=== PATIENT | male | born 1935 | race Caucasian/White ===

== ENCOUNTER 2017-03-19 23:29 | Inpatient (IN) | payer MEDICARE, OTHER ==
[~2017-03-19] VITALS: Ht 175.3 cm; Wt 86.8 kg
[~2017-03-19 23:29] MED LIST: ALBU8.5H2 INH; ASPI-973 PO; ATOR80TA77 PO; AZEL23SP NASAL; BISO5TAB2 PO; CARV12.52 PO; CHOL200025 PO; CLOP75TA28 PO; DOXY100V IV; GUAI120013 PO; LOSA50TA37 PO; METF1000 PO; MOME13HF INH; MULT-896 PO; NITR0.4T PO; SITA100T12 PO; TIOT18CA3 INH
[2017-03-19 23:39] VITALS: BP 154/77; PULSE 97; RESP 16; O2SAT 97
--- NOTE | 2017-03-19 23:59 | ED.REPORT ---
HPI-Chest Pain 40 and Over Date of Service Mar 19, 2017 ED Provider: Al Ribera MD A 81 year old male with a history of PR, CHF, CAD, CABG, hypertension, diabetes and COPD presents to the ED due to chest pain and elevated heart rate. The pt began experiencing right arm aching and left-sided chest aching at 19:15 while sitting down. He took his blood pressure and heart rate at that time, which were 150/80 and 102 respectively. His blood sugar was above 200. These levels remained fairly constant for several hours. The pt took two sublingual nitroglycerin between 19:00 and 20:00, and when the pt woke up at 21:45 after a brief nap his arm and chest aches had improved. His heart rate remained in the nineties, which is abnormally high for him. The pt denies shortness of breath, headache, vision changes, fever, chills, constipation or lower extremity edema. The pt is not experiencing chest pain in the ED and believes that his symptoms may be related to relatively high levels of sugar intake at 18:00. The pt has a history of similar symptoms during cardiac events. Nursing Notes Stated Complaint: RT ARM PAIN,SOME CHEST PRESSURE Chief Complaint: Chest Pain Nursing Notes Reviewed: Yes Allergies: Coded Allergies: Potassium Clavulanate (Verified Allergy, Severe, 03/19/17) amoxicillin trihydrate (Verified Allergy, Severe, 03/19/17) Scheduled Aspirin (Aspirin) 81 Mg Tablet 81 MG PO DAILY Atorvastatin Calcium (Atorvastatin Calcium) 80 Mg Tablet 80 MG PO DAILY Azelastine/Fluticasone (Dymista Nasal [place]) 23 Gm [place].pump 2 SPR NASAL DAILY Bisoprolol Fumarate (Bisoprolol Fumarate) 5 Mg Tablet 5 MG PO DAILY Carvedilol (Carvedilol) 12.5 Mg Tablet 12.5 MG PO BID Cholecalciferol (Vitamin D3) (Vitamin D3) 2,000 Unit Tablet 2,000 UNIT PO DAILY Clopidogrel (Clopidogrel) 75 Mg Tablet 75 MG PO DAILY Doxycycline Hyclate (Doxy 100) 100 Mg Vial 100 MG IV BID Losartan Potassium (Losartan Potassium) 50 Mg Tablet 50 MG PO DAILY Metformin (Glucophage) 1,000 Mg Tablet 1,000 MG PO BID Mometasone/Formoterol (Dulera 200 Mcg/5 Mcg Inhaler) 13 Gm Hfa.aer.ad 1 PUFF INH BID Multivitamin W-Minerals/Lutein (Centrum Silver Ultra Men's Tab) 1 Each Tablet 1 EACH PO DAILY Sitagliptin Phos (Januvia) 100 Mg Tablet 100 MG PO DAILY Tiotropium [place] (Spiriva) 18 Mcg Cap.w.dev 18 MCG INH DAILY Scheduled PRN Albuterol HFA (Proair HFA) 8.5 Gm Hfa.aer.ad 2 PUFFS INH q4 hours PRN PRN For Shortness of Breath Guaifenesin (Mucinex) 1,200 Mg Tbmp.12hr 1,200 MG PO BID PRN PRN For Cough Nitroglycerin SL (Nitrostat) 0.4 Mg Tab.subl 0.4 MG PO Q5MIN PRN PRN For Chest Pain General Time Seen by MD: 23:56 Chief Complaint Chest pain Hx Obtained From: Patient Arrived By: Walk-in Sudden in Onset?: No Onset Occurred: 1 - 4 hours ago Recent Healthcare: No recent hospitalization, Recent doctor visit Similar Sx Previous: No Past Medical History Past Medical History Notes: Medications: ASA 81 mg atorvastatin 80 mg bisoprolol fumarate 5 mg centrum cozaar 50 mg dulera 200 mcg inhaler dymista 137 mcg nasal spray januvia tabs 100 mg metformin 1,000 mg plavix 75 mg nitrostat 0.4 mg Past Medical History PR pacemaker arthritis SVT Reports: COPD, Congestive heart failure, Coronary artery disease, Diabetes mellitus, Hypertension Past Surgical History vasectomy heel surgery pacemaker placement Reports: CABG Smoking History Former Smoker Social History Former smoker, used for 26 years, quit in 1976. Alcohol Use: "Social" Drug Use: Denies drug use Ambulatory Status Independent Review of Systems Review of Systems Note: right arm ache high heart rate high blood sugar denies lower extremity edema Constitutional: Denies: Chills, Fever Respiratory: Denies: Non-productive cough, Shortness of breath Cardiovascular: Reports: Chest pain GI: Denies: Abdominal pain, Constipation Musculoskeletal: Denies: Back pain, Neck pain Skin: Denies Rash Neurologic: Denies: Headache Complete sys rev & neg: except as marked. Physical Exam Constitutional: Well-developed, well-nourished. Not diaphoretic. Head: Normocephalic and atraumatic. Mouth/Throat: Oropharynx is clear and moist. No oropharyngeal exudate. Eyes: EOM are normal. Pupils are equal, round, and reactive to light. Neck: Supple, no tracheal deviation. Cardiovascular: Normal rate, regular rhythm. Equal and intact distal pulses throughout. 2/6 systolic murmur. Pulmonary/Chest: Effort normal and breath sounds normal. No respiratory distress. Abdominal: Soft. No distension. There is no tenderness, rebound, or guarding. Bowel sounds present. Musculoskeletal: Range of motion grossly intact, moving all extremities. No edema or tenderness appreciated. Neurological: AOx3. Grossly nonfocal exam. Strength and sensation intact and equal to bilateral upper and lower extremities. Skin: Warm and dry, no rashes or pallor appreciated. Psychiatric: Appropriate mood and affect. Behavior appears normal. Initial Vital Signs Vital Signs (First) Date Time Temp Pulse Resp B/P Pulse Ox O2 Delivery O2 Flow Rate FiO2 03/19/17 23:39 36.5 97 16 154/77 97 Room Air Initial VS: Reviewed Interpretation & Diagnostics Lab Results Interpretation Result Diagram: 03/19/17 2355 03/19/17 2355 Test 03/19/17 23:55 03/20/17 01:45 White Blood Count 11.5th/mm3 (3.8-10.1) Red Blood Count 3.83mil/mm3 (4.40-5.80) Hemoglobin 12.2g/dL (13.8-17.2) Hematocrit 36.0% (41.0-50.0) Mean Corpuscular Volume 94.0fL (81-100) Mean Corpuscular Hemoglobin 31.9pg (27.0-35.0) Mean Corpuscular Hemoglobin Concent 33.9% (32.0-37.0) Red Cell Distribution Width 13.2% (12.3-15.4) Platelet Count 154bil/L (150-400) Neutrophils (%) (Auto) 76.5% (40-74) Lymphocytes (%) (Auto) 15.0% (14-46) Monocytes (%) (Auto) 7.2% (4-12) Eosinophils (%) (Auto) 1.0% (0-5) Basophils (%) (Auto) 0.1% (0-3) Sodium Level 138mEq/L (134-144) Potassium Level 5.0mEq/L (3.5-5.2) Chloride Level 100mEq/L (97-108) Carbon Dioxide Level 22mmol/L (18-29) Blood Urea Nitrogen 34mg/dL (8-27) Creatinine 1.43mg/dL (0.76-1.27) Estimat Glomerular Filtration Rate 51mL/min (>59) Glucose Level 176mg/dL (60-99) Calcium Level 9.8mg/dL (8.5-10.1) Magnesium Level 1.8mg/dL (1.6-2.6) Total Bilirubin 0.4mg/dL (0.0-1.2) Aspartate Amino Transf (AST/SGOT) 33U/L (0-50) Alanine Aminotransferase (ALT/SGPT) 16U/L (0-44) Alkaline Phosphatase 83U/L (25-160) Troponin T 0.020ug/L (0.0-0.011) Total Protein 7.5g/dL (6.4-8.4) Albumin 4.4g/dL (3.4-5.0) Triglycerides Level 337mg/dL (0-149) Cholesterol Level 157mg/dL (100-199) LDL Cholesterol, Calculated 52.600mg/dL (0-99) VLDL Cholesterol 67.400mg/dL HDL Cholesterol 37mg/dL (>39) Cholesterol/HDL Ratio 4.24 (0.0-4.4) Urine Color Yellow (YELLOW) Urine Appearance Clear (CLEAR,HAZY) Urine pH 5.0 (5.0-8.0) Urine Specific [place] 1.020 (1.003-1.035) Urine Protein Negativemg/dL (NEG,TRACE) Urine Glucose (UA) Negativemg/dL (NEGATIVE) Urine Ketones Negativemg/dL (NEGATIVE) Urine Occult Blood Negative (NEGATIVE) Urine Nitrite Negative (NEGATIVE) Urine Bilirubin Negative (NEGATIVE) Urine Urobilinogen Normalmg/dL (NORMAL) Urine Leukocyte Esterase Negative (NEGATIVE) Urine RBC 0-2/hpf (0-2) Urine WBC 0-5/hpf (0-5) Urine Epithelial Cells Few/hpf (NONE-MOD) Urine Crystals None seen (NONE SEEN) Urine Bacteria Few/hpf (NONE-FEW) Urine Hyaline Casts None/lpf (NONE) Urine Granular Casts None seen (NONE SEEN) Urine Waxy Casts None seen (NONE SEEN) Urine Red Blood Cell Casts None seen (NONE SEEN) Urine White Blood Cell Casts None seen (NONE SEEN) Urine Mucus None seen (None Seen) Urine Trichomonas None seen (NONE SEEN) Urine Yeast None (NONE SEEN) Urinalysis Comment None Urine Culture Reflexed Not indicated Hold Urine Received (Received) ECG Interpretation ECG Interpretation: sinus or ectopic atrial rhythm with a rate of 97 RBBB and LAFB LVH with secondary repolarization abnormality anterior Q waves, possibly due to LVH ST depressions in II, V3 - V6 changed from previous dated 10/26/2015 Time: 23:35 Interpreted by: ED physician X-Ray Chest Interpretation Chest Xray Interpretation: pacer defibrillator in place no signs of acute disease Interpretation / Wet Read by: Wet read ED physician Re-Eval/Medical Decision Med Decision/Clinical Course 81 yo M w/ complex cardiac hx incl prev intervention p/w chest pain typical of previous times in which he had cardiac 'events'. CP free after NTG, however does have an STEPHANIE and slight troponin elevation. New ST depressions in lateral leads noted on today's EKG not present previously. Discussed case w/ Dr. Simon - appreciate recs. Plan admission for further w/u and mgmt, telemetry, serial troponins and EKGs, and cardiology eval. Pt agreeable to plan, no further questions. Source of Hx: Old records Time of Eval: 01:02 Re-Evaluation/Progress Note: Pt informed of his EKG results and the need for admission. The pt understands and agrees with the plan. All questions are addressed at this time. Consultation #1: Referral / Consult Name: Charlie Taylor MD Consulted With: Hospitalist Call Returned at: 01:20 Dye Stand Loader: Agrees with eval, Agrees with plan Note: Spoke with Dr. Taylor, [facility], regarding pt's case. Dr. Taylor requests cardiology consult prior to admission. Consultation #2: Referral / Consult Name: Eliel Simon MD Consulted With: Cardiology Call Returned at: 01:30 Dye Stand Loader: Agrees with evperry, Agrees with plan Note: Spoke with Dr. Simon, cardiology, regarding pt's case. Dr. Simon recommends admission and agrees to consult. Consultation #3: Referral / Consult Name: Charlie Taylor MD Consulted With: Hospitalist Call Returned at: 01:35 Dye Stand Loader: Agrees with eval, Agrees with plan, Accepts admit Note: Spoke with Dr. Taylor, hospitalist, regarding pt's case. Dr. Taylor agrees with the evaluation and agrees to admit the pt. Counseled Regarding: Diagnosis, Lab results, Need for admission Discharge & Departure Primary Impression: STEMI (ST elevation myocardial infarction) Involved coronary artery: unspecified coronary artery Qualified Code: I21.3 - ST elevation (STEMI) myocardial infarction of unspecified site Additional Impression: Chest pain Chest pain type: unspecified Qualified Code: R07.9 - Chest pain, unspecified Disposition: ADMITTED TO HOSPITAL Discharge Condition All VS Reviewed: Yes Condition: Stable Referrals: Tristan Smith MD Attestation Portions of this note were transcribed by Florinda Grover. I, Dr. Ribera personally performed the history, physical exam and medical decision-making; I reviewed and confirmed the accuracy of the information in the transcribed note. Signed by: Javier Charles, 03/20/17 and 0137. copies to: Tristan Smith MD, William B MD Mar 19, 2017 23:59 FLORINDA GROVER Mar 20, 2017 00:27
[2017-03-20] VITALS (10 sets, daily range): BP systolic 105–132; BP diastolic 56–74; PULSE 60–68; RESP 14–20; O2SAT 96–100
[2017-03-20 00:16] LABS: BASOPHILS % (AUTO) 0.1 % (0-3); MONOCYTES % (AUTO) 7.2 % (4-12); Mean Corpuscular Hemoglobin 31.9 pg (27.0-35.0); NEUTROPHILS % (AUTO) 76.5 % (40-74); Platelet Count 154 bil/L (150-400)
[2017-03-20 00:52] LABS: TROPONIN T 0.02 ug/L (0.0-0.011)
[2017-03-20 00:55] LABS: Magnesium 1.8 mg/dL (1.6-2.6)
--- NOTE | 2017-03-20 01:39 | PCM.HPMED ---
Subjective Date of Service Mar 20, 2017 Primary Provider: Admitting Physician: Primary Care Physician: Ifeanyi Henry MD Attending Physician: Admit Status: From the Emergency Department Chief Complaint: Chest pain History of Present Illness: This is a 81-year-old male with past medical history significant for severe COPD , diabetes mellitus, hypertension, hyperlipidemia, bilateral carotid artery stenosis, and coronary artery disease status post CABG who presents with chest pain. The patient states that over the last year he has intermittently had right forearm pain with a left-sided pressure that is relieved by rest. At times he will need a nitroglycerin tablet to relieve the symptoms but he rarely uses these. Beginning on the evening of 03/19/2017 at 6 PM he began having right arm heaviness, left chest pressure, and felt "listless." This occurred at rest. The severity of these symptoms were unchanged from previous episodes. He also stated that he had elevated pulse in the mid 90s and blood pressure of 150/90 which is abnormal for him. These were persistently elevated throughout the evening and were the reasons he sought medical care. He denies any diaphoresis, nausea, vomiting, diarrhea, shortness of breath worse than baseline. In the emergency department initial vital signs were temperature 36.5 Celsius, pulse 77, respiratory rate 16, blood pressure 154/77, satting at 97% on room air. Initial laboratory values WBC 11.5, hemoglobin 12.2, hematocrit 36.0, MCV 94. BUN 34, creatinine 1.43. Glucose 176. Troponin 0.020. Wet read of chest x-ray shows no acute cardiopulmonary disease. EKG shows sinus rhythm with a rate of 97, right bundle branch block with left anterior fascicular block, LVH. Review of Systems: A comprehensive review of systems was conducted with the patient and found to be negative except as above in the History of Present Illness. Allergies Coded Allergies: Potassium Clavulanate (Verified Allergy, Severe, 03/20/17) "Swollen lips" amoxicillin trihydrate (Verified Allergy, Severe, 03/20/17) "Swollen lips" Home Medications aspirin 81 mg Tab 81 mg take 1 tablet (81MG) by ORAL route every day atorvastatin 80 mg tablet 80 mg TAKE 1 TABLET DAILY bisoprolol fumarate 5 mg tablet 5 mg take 1 tablet by oral route every day COZAAR 50 MG TABLET 50 mg TAKE 1 TABLET BY ORAL ROUTE EVERY DAY Dulera 200 mcg-5 mcg/actuation HFA aerosol inhaler 200 mcg-5 mcg/actuation inhale 1 puff by inhalation route 2 times every day in the morning and evening Dymista 137 mcg-50 mcg/spray nasal spray 137 mcg-50 mcg/spray inhale 1 spray in each nostril once daily furosemide 20 mg tablet 20 mg take 1 tablet by oral route every day Januvia 100 mg tablet 100 mg TAKE 1 TABLET EVERY DAY metformin 1,000 mg tablet 1,000 mg TAKE 1 TABLET TWICE DAILY WITH MORNING AND EVENING MEALS Mucinex 1,200 mg tablet,extended release bi-layer 1,200 mg one tablet po bid Nitrostat 0.4 mg sublingual tablet 0.[address] 1 tablet (0.4MG) by sublingual route at the 1st sign of attack; may repeat every 5 min until relief; if pain persists after 3 tablets in 15 min, prompt medical attention is recommended Plavix 75 mg tablet 75 mg take 1 tablet (75MG) by oral route every day to prevent blood clots. ProAir HFA 90 mcg/actuation aerosol inhaler 90 mcg inhale 2 puff by inhalation route every 4 - 6 hours as needed Spiriva with HandiHaler 18 mcg & inhalation capsules 18 mcg inhale 1 capsule by inhalation route every day 1 tab daily PMH Severe chronic obstructive pulmonary disease Type II diabetes mellitus Hyperlipidemia Hypertension Bilateral carotid artery stenosis Coronary artery disease status post CABG, COLIN to LAD and saphenous vein to the OM1 in August 2011 Last echo 09/25/2016: Left ventricle mildly dilated.Moderately large size proximal mid anterior septal, anterior, lateral wall motion abnormality with hypokinesis to akinesis of the segments. Ejection fraction 35-40%, diastolic parameters suggest a pseudonormalization pattern consistent with elevated filling pressures. Moderate mitral regurgitation, moderate aortic stenosis. Right ventricular systolic pressure 43 mmHg Surgical History CABG Family History Father: Alcoholism. Mother: Lung cancer. Son diabetes mellitus type II. Social History Hx Alcohol Use: Yes (socially) Hx Substance Use: No Hx Tobacco Use: Yes (quit 34 years ago) Smoking Status: Former Smoker Exam Vital Signs Vital Sign - Last Date Time Temp Pulse Resp B/P Pulse Ox O2 Delivery O2 Flow Rate FiO2 03/19/17 23:39 36.5 97 16 154/77 97 Room Air Exam General: No acute distress, well-developed, well-nourished, appropriately interactive HEENT: Normocephalic, atraumatic. External ears without defect. Pupils equal, round, and reactive to light and accommodation. Anicteric sclerae, moist conjunctivae, and no lid lag. Oropharynx free of erythema and cobble stoning with moist mucosa. Neck: Supple with full range of motion. No jugular venous distension. No bruits. No lymphadenopathy or thyromegaly. Cardiovascular: Regular rate and rhythm with no murmurs, rubs, or gallops appreciated Pulmonary: Clear to auscultation bilaterally with no crackles, wheezes, or rhonchi. Normal respiratory effort with no use of accessory muscles. Abdomen: Bowel tones present. Soft, nontender, nondistended. No hepatosplenomegaly or masses appreciated. Extremities: No clubbing, cyanosis, edema, or lymphadenopathy appreciated. Skin: Normal temperature, turgor, and texture; no rash, ulcers, or subcutaneous nodules appreciated. Neurological: Cranial nerves grossly intact. Normal muscle strength, tone, and bulk. Reflexes, coordination, and sensory function within normal limits. No known gait impairment. Psychiatric: Normal mood and affect. Alert and oriented to person, place, and time. Lab and Diagnostics Result Diagram: 03/19/17235403/19/172354 X-Rays, CTs and MRIs Wet read chest x-ray shows no acute cardiopulmonary abnormalities Assessment & Plan This is a 81-year-old male with past medical history significant for severe COPD , diabetes mellitus, hypertension, hyperlipidemia, bilateral carotid artery stenosis, and coronary artery disease status post CABG who presents with chest pain. The patient has intermittent right arm heaviness with left chest pressure that has occurred multiple times in the last year. The severity of these symptoms was unchanged from previous episodes. Tonight this was accompanied by elevated pulse and mildly elevated blood pressure. Chest pain, present on admission, ongoing: -Dr. Simon of Cardiology was contacted by ED physician who asked us to trend troponins. -Troponin elevated at 0.020. This may be due to acute kidney injury. We will trend 3. -Patient on telemetry. -Continue aspirin and Plavix Chronic Normocytic anemia, present on admission, ongoing: -On 12/20/2015 hemoglobin 12, hematocrit 36, MCV 94. On admit hemoglobin 12.2, hematocrit 36.0, MCV 94. This is stable. -Continue to monitor Leukocytosis, present on admission, ongoing: -Mildly elevated WBC. -Continue to monitor Acute kidney injury, present remission, ongoing: -On 09/25/2016 BUN 23, creatinine 1.26. On admit BUN 34, creatinine 1.43 -Possibly due to prerenal azotemia as patient states he has poor fluid intake at baseline. He has also been taking one ibuprofen per day for the last two weeks. -Normal saline at 80 mL per hour Diabetes mellitus, present admission, ongoing: -Last A1c in 12/20/2015 was 6.7. -On admit glucose 176. -A1c ordered. -Continue metformin and Januvia. Humalog low-dose correctional. Hypertension, present on admission: -Continue losartan and bisoprolol. Hyperlipidemia, present admission: -Continue atorvastatin. COPD, present admission: -Continue Dulera, Spiriva, albuterol. DVT prophylaxis with heparin. Patient is admitted under observation status with expected length of stay less than 2 midnights due to severity of presenting symptoms, risk of adverse event, and complexity of treatment plan. Pain Evaluation: Adequate Pain Control Resuscitation Status: CPR: Attempt Resuscitation Attending Statement The patient was seen and examined together with Dr. Otoole on 03/20 and I agree with the history, exam and plan as outlined in the note above. Nabeel Otoole DO Mar 20, 2017 01:39 Charlie Taylor MD Mar 20, 2017 03:20
[2017-03-20 02:05] LABS: APPEARANCE,URINE CLEAR (CLEAR,HAZY); COLOR,URINE YELLOW (YELLOW); OCCULT BLOOD,URINE NEGATIVE (NEGATIVE); UROBILINOGEN,URINE NORMAL (NORMAL)
[2017-03-20] MEDS ORDERED: 0.9% Sodium Chloride 1,000 ML IV SCH (02:23)
[2017-03-20] MEDS ORDERED: Alum-Mag Hydrox-Simeth 30 mL Suspension PO PRN (02:25)
[2017-03-20] MEDS ORDERED: Ondansetron 2 mg/mL 2 mL Inj IVPUSH PRN (02:25)
[2017-03-20] MEDS ORDERED: Polyethylene Glycol (PEG) 17 Gm Powder PO PRN (02:25)
[2017-03-20] MEDS ORDERED: Glucose 40% Oral Gel 15 Gm Tube PO PRN (02:30)
[2017-03-20] MEDS ORDERED: Dextrose 10% 250 ML IV PRN (02:35)
[2017-03-20] MEDS ORDERED: FUR20 PO (03:40)
--- NOTE | 2017-03-20 04:06 | NUR ---
ADMIT NOTE Pt arrived to [facility]30 approx 0300. Pt alert and oriented, able to ambulate to bed. VS obtained. Pt on RA. Pt denies any pain or discomfort. No chest pain/discomfort. Pt placed on remote telemetry. Admitting resident called to ask about BNP lab and clarify IVF d/t pt hx of CHF. No orders for BNP received, continue w/ IVF of NS @ 80ml/hr. IVF administered. Continue to monitor. Call light in reach. Plan of care written on white board. Intentional rounding.
[2017-03-20] MEDS: Insulin LISPRO 300 Unit/3 mL Inj SUBQ SCH ×4 (08:00→22:00)
[2017-03-20] MEDS ORDERED: Heparin 5,000 Unit/mL Inj SUBQ SCH (08:30)
--- NOTE | 2017-03-20 08:31 | DRSVH ---
PROCEDURE: X-RAY CHEST ONE VIEW, PORTABLE ([id number]) INDICATIONS: CHEST PAIN TECHNIQUE: One view of the chest was acquired. COMPARISON: [facility], CR, XR CHEST 1VW (PORTABLE), 10/25/2015, 10:11. FINDINGS: Surgical changes and devices: Sternotomy and CABG. There is a cardiac pacemaker. Lungs and pleura: A calcified granuloma is present in the right lower lobe. No pleural effusions or pneumothorax. Lungs are clear. Mediastinum: Mediastinal contours appear normal. Heart size is normal. Bones and chest wall: No suspicious bony lesions. Overlying soft tissues appear unremarkable. IMPRESSION: No acute cardiopulmonary disease. Remote granulomatous disease. Dictated by: Chino Spaulding M.D. on 03/20/2017 at 8:29 Approved by: Chino Spaulding M.D. on 03/20/2017 at 8:30
[2017-03-20] MEDS ORDERED: Heparin 25K Unit/500mL 0.45 NS 25,000 UNIT in IV Premix 1 EACH IV SCH (10:10)
[2017-03-20] MEDS ORDERED: Heparin 5,000 Unit/mL Inj IVPUSH ONE (10:10)
[2017-03-20] MEDS ORDERED: Heparin Protocol Boluses IVPUSH PRN (10:30)
--- NOTE | 2017-03-20 14:18 | NUR ---
Social Work-initial assessment: Data:See initial assessment. Pt is a 81 y/o male who was admitted on 03/20/17 for chest pain per H&P. Pt's insurance is [employer] and PCP is Ifeanyi Henry MD. EMR reviewed. ETELVINA met with pt and Flor [phone] at bedside to discuss discharge planning, SW role explained. Pt does not use any DME and drives. Pt has no history of HH or SNF. Pt has no [employer]erman care insurance or VA benefits. SW discussed DPOA/ advanced directive, pt confirms he has completed this, SW encouraged a copy to be brought in. Pt and do not anticipate any discharge needs. Pt's to provide transport home at discharge. SW provided phone number and plan on white board in room. SW will continue to follow. Assessment:Pt who is independent at baseline. Plan:Pt to discharge home when medically stable via POV. No anticipated discharge needs. SW will continue to follow. ALMAS De La Garza Addendum: 03/20/17 at 1419 by JOSIE WOOTEN Amended: Links added.
--- NOTE | 2017-03-20 14:20 | PCM.PNMED ---
Subjective Date of Service Mar 20, 2017 Subjective Patient seen and examined at bedside, still notes mild amount of left-sided chest discomfort or tightness without noting overt pain. Heart rate which been elevated on presentation is now returned to normal. Nose no acute complaints does not push himself this morning but remaining in bed Appetite is good, he has experienced no nausea or vomiting. Ate breakfast without complication. Exam Vital Signs Vital Sign - Last Date Time Temp Pulse Resp B/P Pulse Ox O2 Delivery O2 Flow Rate FiO2 03/20/17 13:37 36.7 60 20 117/66 97 Room Air Intake and Output 03/19/17 03/19/17 03/20/17 Cumulative From/Thru 15:00 23:00 07:00 03/19/17 23:39 - 03/20/17 06:54 Intake Total 553 ml 553 ml Output Total 225 ml 225 ml Balance 328 ml 328 ml Intake Oral 400 ml 400 ml IV Total 153 ml 153 ml Output Urine Total 225 ml 225 ml # Bowel Movements 0 0 Exam Patient is lying comfortably in bed Heart rate is regular rate and rhythm Left-sided tightness is not reproducible with palpation overlying muscle spasms are noted Lungs are clear to auscultation Lower extremities demonstrate no swelling or edema Good pulses bilateral dorsal pedis. IVs and Medications Medications Reviewed: Medications were reviewed in detail Lab and Diagnostics Result Diagram: 03/19/17 2355 03/19/17 2355 X-Rays, CTs and MRIs Wet read chest x-ray shows no acute cardiopulmonary abnormalities Assessment & Plan Patient troponin values have been upper trending since morning, on admission they were 0.03, this morning at 8am, 0.3, then subsequently 0.6. call centre supervisor hook puller paged a number of times from 8a until 1p when he was finally contacted and notified of patient. Heparin drip started in response to first elevated troponin, patient has been made NPO in anticipation of possible procedure, heart catheterization. He has eaten breakfast however so this procedure will certainly need to be delayed until afternoon of the very earliest. Medical stability is reassuring, continue to monitor on telemetry. Pain Evaluation: Adequate Pain Control VTE Mechanical Devices: Venous Foot Pump Resuscitation Status: CPR: Attempt Resuscitation Time spent 20 minutes Joe Serrato DO Mar 20, 2017 14:20
--- NOTE | 2017-03-20 14:37 | NUR ---
Case Management: IMM given and explained to pt. Carly SELBYRN
--- NOTE | 2017-03-20 18:26 | NUR ---
uneventful shift pt had no chest pain/arm pain or any other cardiac pain throughout shift. pt was kept NPO for a possible heart cath, procedure changed to stress test in the morning. pt is to be NPO at midnight, pt aware of protocol and test in the am.
--- NOTE | 2017-03-20 21:00 | CONS ---
[address] [address] CONSULTATION REPORT PATIENT: DOV ZALDIVAR : 1935 MR#: [id number] ADMIT: 03/20/2017 JOB ID: [id number] DATE OF SERVICE: 03/20/2017 HISTORY: Mr. 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 He had just eaten a piece of maple candy and was concerned that it was related to a high blood sugar. When his symptoms did not resolve, he checked his blood pressure and heart rate and found that they were moderately elevated with heart rates in the low 100 range. He ended up taking a couple of nitroglycerin without significant benefit, but gradually the discomfort improved over a couple of hour period and he fell asleep. When his came home, he reviewed the information with her, and at her urging, he was presented to the emergency department for evaluation. His initial troponin was mildly elevated and subsequent troponins showed a significant increase. He has not had recurrent chest discomfort since yesterday evening. Mr. Zaldivar' previous coronary angiography most recently was after he presented with an [id number] cardiac arrest last year. He had two-vessel coronary artery bypass graft surgery in 2010 for significant left main disease with an internal mammary graft to the LAD and a vein bypass graft to the circumflex. His right coronary shows mild atherosclerosis but no obstructive disease. His cardiac arrest was precipitated by occlusion of his left main which isolated his proximal LAD, septal perforators, small diagonal branch and a ramus vessel, which were not perfused by his distal coronary bypass grafts. He infarcted his proximal anterior wall and anterior septum with an [id number] cardiac arrest but subsequently recovered and an ICD was placed. In addition, Mr. Zaldivar has a known history of aortic stenosis. His left ventricular systolic function is moderately reduced with an ejection fraction of around 35%. Despite these issues, he has done well since I saw him in the office this last September. In the last couple of days, he has been out in his yard, doing a fair amount of yard work for two or 3 hours at a time, weed whacking and picking up pot plants and carrying them around and was able to do so without significant symptoms of limiting dyspnea or any type of anginal chest discomfort. Since I saw him in September, he has not had symptoms of typical provocable exertional dyspnea or angina. The episode last night occurred while he was at rest without any obvious provocation. PAST MEDICAL HISTORY: Includes diabetes, hypertension, dyslipidemia and COPD. OUTPATIENT MEDICATIONS: Include aspirin, atorvastatin, bisoprolol, Cozaar, furosemide, and clopidogrel. He is on medications and a medicine for COPD in addition. REVIEW OF SYSTEMS: Otherwise unremarkable. The patient is 5 feet 9 and weighs about 190 pounds. EKG shows an intraventricular conduction delay, normal sinus rhythm, and fairly diffuse ST-segment abnormalities which are fairly prominent in V4 through V6. These EKG changes were present on his previous EKG from October of last year but much less prominent. On exam, he is quite comfortable appearing. He is 5 feet 9 inches tall and weighs 191 pounds with a body mass index of 28. Blood pressures have been ranging in the 120-130 range with heart rates at 60-70 beats per minute, in normal sinus rhythm with normal room air O2 saturation. HEENT examination is unremarkable. Jugular venous pressure looks normal. Carotid upstroke is slightly reduced in amplitude but has near-normal carotid upstroke velocity. He has a mid peaking grade 3/6 systolic ejection murmur heard at the left upper and right upper sternal border. I do not hear a diastolic murmur. There is a previous sternotomy incision apparent. Distal extremities are warm and well perfused. No significant edema, clubbing or cyanosis. No significant musculoskeletal or neurologic findings noted. LABORATORY DATA: Again is notable for a mild anemia with a hemoglobin of 12.12. His white count slightly elevated at 11.5. Platelet count 154. Chemistries show an initial troponin of 0.02, increasing to 0.36, and then 0.68. Blood sugar 176, creatinine 1.43. Electrolytes normal. Total cholesterol 157 with an LDL cholesterol of 52. IMPRESSION: Mr. Zaldivar' acute coronary event is unusual in that he was able to be quite active without any anginal symptoms up until this event yesterday evening. This could represent a new obstructive lesion involving his right coronary artery. On previous angiography his circumflex vein bypass graft looked quite good and it seems less likely that that would be the case, although the lateral ST-segment depression certainly is concerning that perhaps he has some threatening obstruction of his obtuse marginal vein bypass grafts. I am going to recommended a nuclear cardiac stress study be done. This should be a symptom limited test with him walking on the treadmill. It should not be a target heart rate test. If this patient has hypotensive blood pressure response or develops angina-like symptoms, the test should be stopped and the nuclear material injected and we can then use the information provided by his nuclear scan to assist with determining appropriate options. His examination today is not consistent with progressive or severe aortic stenosis. The other option is that this may have represented a transient tachyarrhythmia causing stress release and lack of troponin. I am going to have my office staff come over and interrogate his device tomorrow to determine if there has been any tachycardia event that may have been the culprit. I have reviewed these thoughts with the patient and his and I have talked with the hospitalist about ordering the nuclear cardiac study. I would continue all of his current cardiac home medications for the time being, and I think we can discontinue his heparin when he goes down for his nuclear scan tomorrow.
[2017-03-21 03:00] VITALS: BP 119/68; PULSE 60; RESP 16; O2SAT 99
[2017-03-21] MEDS ORDERED: Albuterol HFA 60 Puff 8 Gm Inhaler INHALATION PRN (07:40)
[2017-03-21] MEDS ORDERED: Albuterol 2.5 mg/3 mL Inhalation Solution NEB PRN (07:45)
[2017-03-21] MEDS: Insulin LISPRO 300 Unit/3 mL Inj SUBQ SCH ×2 (08:00→11:58)
[2017-03-21] MEDS ORDERED: guaiFENesin 600 mg ER12 Tablet PO PRN (08:30)
[2017-03-21] MEDS ORDERED: DYMISTA NASAL SCH (08:30)
[2017-03-21] MEDS ORDERED: BISOPROLOL 5 MG PO SCH (08:30)
[2017-03-21] MEDS ORDERED: Tiotropium 18mcg/Cap 5 Capsule Inhaler Kit INHALATION SCH (08:30)
--- NOTE | 2017-03-21 09:41 | NUR ---
Off Unit: Patient transported to [facility] @ approx 0940 via wheelchair accompanied by transporter. multi craft maintenance technician notified. VSS. No apparent distress at time of transport, denies pain and SOB.
[2017-03-21 11:30] VITALS: PULSE 60
--- NOTE | 2017-03-21 14:10 | PCM.DC.MED ---
Discharge Summary Date of Service Mar 21, 2017 Dates of Hospitalization Date of Hospital Admission Mar 20, 2017 at 02:16 Date of Discharge: Mar 21, 2017 Providers: Admitting Physician: Charlie Taylor MD Primary Care Physician: Ifeanyi Henry MD Attending Physician: Charlie Taylor MD Diagnosis at Time of Discharge Diagnosis at Time of Discharge Acute cardiac strain/elevated troponin values, without evidence of acute myocardial infarction. Consultations Cardiology, Dr Smith Procedures XRay, CTs & MRIs Wet read chest x-ray shows no acute cardiopulmonary abnormalities Invasive Procedures Date of Service: 03/21/171813 PROCEDURE: 1 DAY TREADMILL STRESS TEST Rest and exercise myocardial perfusion SPECT with gated imaging and ejection fraction RADIOPHARMACEUTICAL: 9.6 mCi Tc-99m tetrafosmin IV at rest and 25.5 mCi Tc-99m tetrafosmin IV at peak exercise. Tdp-dzl-[id number] was performed. INDICATIONS: 81-year-old man with coronary artery disease and history of coronary artery bypass grafting in 2010. She presents with chest pain. Evaluate myocardial ischemia. TECHNIQUE: Radiopharmaceutical was injected at peak stress test, and also at rest. SPECT images were obtained. SPECT myocardial perfusion images were displayed in short axis, horizontal long axis, and vertical long axis views. Gated images were reviewed using Pressglue software. COMPARISON: [place], [place], [place] CARDIAC STRESS TEST EXERCISE, 2015, 11:15. [place], MYOCARD PERF SPECT MULT, MIBI, 2012, 9:56. CARDIAC STRESS: A standard Kieran treadmill exercise tolerance test was performed by the patient under the supervision of an attending staff. The patient exercised for 4 minutes and 18 seconds; functional aerobic impairment (RAMYA) is +10 %. Hemodynamic data: There is normal blood pressure and heart rate response to exercise stress. Patient achieved 82% of maximum predicted heart rate at peak exercise. Symptoms: Patient had chest tightness with shortness of breath during exercise. EKG: Up to [address] depression in inferolateral leads. FINDINGS: Raw data: There is good myocardial labeling by radiotracer. No significant motion artifacts. Left ventricle function: Gated images demonstrate decreased left ventricle wall thickening in the anterior wall and apex. There is diffuse hypokinesia of the left ventricle. The anterior wall is akinetic. There is septal rocking. No transient ischemic dilation. The left ventricle resting end-diastolic volume is mildly increased. Left ventricle stress ejection fraction is 30%; normal values are above 45%. Myocardial perfusion: There is a large, severe, fixed perfusion defect in the anterior wall extending to the anterolateral wall and apex, consistent with myocardial infarction. There is no reversible perfusion defect to suggest myocardial ischemia. Comparison to prior examinations: Compared to the last examination on 12/14/2015 , there is no significant interval change. IMPRESSION: Abnormal myocardial perfusion images. 1. There is a large myocardial infarct in the anterior wall extending to the anterior lateral wall and apex. 2. No significant reversible perfusion defect to suggest border zone ischemia. 3. Mild left ventricular enlargement. There is moderately decreased left ventricular systolic function with LVEF at 30%. 4. Reduced exercise capacity. The patient had chest tightness with shortness of breath during exercise. EKG showed ST depression in inferior and lateral leads. PQRS ATTESTATIONS: Measure 322 - Is this imaging test primarily performed on a low-risk surgery patient for preoperative evaluation within 30 days preceding their low-risk non- cardiac surgery? Low-risk surgery is defined as cardiac or myocardial infarction less than 1%, including (but not limited to) endoscopic procedures, superficial procedures, cataract surgery, and excisional breast surgery: Answer : No Measure 323 - Is this imaging test performed primarily for the monitoring of an asymptomatic patient who had percutaneous coronary intervention on the visit date or within 2 years of the visit date? Answer: No Measure 324 - Is this imaging test performed primarily for the initial detection and risk assessment on an asymptomatic, low coronary heart disease patient? Low CHD risk definition = clinicians should consider the maximum number of available patient factors used to estimate risk based on [place] ( ATP III criteria), typically age, gender, diabetes, smoking status, and use of blood pressure medication, and integrate age appropriate estimates for missing elements, such as LDL or standard blood pressure. Answer: No Dictated by: Chino Spaulding M.D. on 03/21/2017 at 15:13 Brief History As per admission history of present illness by admitting physician , "This is a 81-year-old male with past medical history significant for severe COPD, diabetes mellitus, hypertension, hyperlipidemia, bilateral carotid artery stenosis, and coronary artery disease status post CABG who presents with chest pain. The patient states that over the last year he has intermittently had right forearm pain with a left-sided pressure that is relieved by rest. At times he will need a nitroglycerin tablet to relieve the symptoms but he rarely uses these. Beginning on the evening of 03/19/2017 at 6 PM he began having right arm heaviness, left chest pressure, and felt "listless." This occurred at rest. The severity of these symptoms were unchanged from previous episodes. He also stated that he had elevated pulse in the mid 90s and blood pressure of 150/90 which is abnormal for him. These were persistently elevated throughout the evening and were the reasons he sought medical care. He denies any diaphoresis, nausea, vomiting, diarrhea, shortness of breath worse than baseline. In the emergency department initial vital signs were temperature 36.5 Celsius, pulse 77, respiratory rate 16, blood pressure 154/77, satting at 97% on room air. Initial laboratory values WBC 11.5, hemoglobin 12.2, hematocrit 36.0, MCV 94. BUN 34, creatinine 1.43. Glucose 176. Troponin 0.020. Wet read of chest x-ray shows no acute cardiopulmonary disease. EKG shows sinus rhythm with a rate of 97, right bundle branch block with left anterior fascicular block, LVH. " Hospital Course On admission Patient troponin values were upper trendin.03, to a morning value at 8am, 0.3, then subsequently 0.6. Patient with subsequent restarted on heparin drip which was discontinued overnight . Dr. Smith case liner is cable television access coordinator , who was also patient's outpatient case liner and was very familiar with patient's case . He did not believe based on EKG findings and overall presentation the patient was in fact experiencing acute ACS , but rather he believes the elevated troponins represented an acute event of cardiac strain without formal occlusion . As such she recommended a nuclear medicine stress test to be conducted on date 1 of hospitalization . Stress test did not support the presence of an acute coronary event , and demonstrated essentially stable cardiac functioning . Patient's pacemaker in addition was interrogated , and demonstrated no adverse events or dysfunction . As such it was the recommendation of case liner Dr. Smith the patient continue on all medications as prescribed currently , and to be discharged home with plan to follow-up in outpatient setting . He was in stable condition medically without recurrence of chest discomfort during his hospital stay . Exam Vital Signs (Last) Date Time Temp Pulse Resp B/P Pulse Ox O2 Delivery O2 Flow Rate FiO2 6/7/17 11:30 60 03/21/17 03:00 36.7 16 119/68 99 Room Air Exam Patient seated in hospital chair, comfortably in no acute distress Rate was a regular rate and rhythm, proximally in the 60s. Strategies well perfused without edema Lung [place] clear to auscultation Test 03/19/17 23:55 03/20/17 01:45 03/20/17 11:45 03/21/17 04:25 White Blood Count 11.5th/mm3 (3.8-10.1) Red Blood Count 3.83mil/mm3 (4.40-5.80) Hemoglobin 12.2g/dL (13.8-17.2) Hematocrit 36.0% (41.0-50.0) Mean Corpuscular Volume 94.0fL (81-100) Mean Corpuscular Hemoglobin 31.9pg (27.0-35.0) Mean Corpuscular Hemoglobin Concent 33.9% (32.0-37.0) Red Cell Distribution Width 13.2% (12.3-15.4) Platelet Count 154bil/L (150-400) Neutrophils (%) (Auto) 76.5% (40-74) Lymphocytes (%) (Auto) 15.0% (14-46) Monocytes (%) (Auto) 7.2% (4-12) Eosinophils (%) (Auto) 1.0% (0-5) Basophils (%) (Auto) 0.1% (0-3) Hemoglobin A1c 6.2% (4.8-5.6) Magnesium Level 1.8mg/dL (1.6-2.6) Total Bilirubin 0.4mg/dL (0.0-1.2) Aspartate Amino Transf (AST/SGOT) 33U/L (0-50) Alanine Aminotransferase (ALT/SGPT) 16U/L (0-44) Alkaline Phosphatase 83U/L (25-160) Total Protein 7.5g/dL (6.4-8.4) Albumin 4.4g/dL (3.4-5.0) Triglycerides Level 337mg/dL (0-149) Cholesterol Level 157mg/dL (100-199) LDL Cholesterol, Calculated 52.600mg/dL (0-99) VLDL Cholesterol 67.400mg/dL HDL Cholesterol 37mg/dL (>39) Cholesterol/HDL Ratio 4.24 (0.0-4.4) Urine Color Yellow (YELLOW) Urine Appearance Clear (CLEAR,HAZY) Urine pH 5.0 (5.0-8.0) Urine Specific [place] 1.020 (1.003-1.035) Urine Protein Negativemg/dL (NEG,TRACE) Urine Glucose (UA) Negativemg/dL (NEGATIVE) Urine Ketones Negativemg/dL (NEGATIVE) Urine Occult Blood Negative (NEGATIVE) Urine Nitrite Negative (NEGATIVE) Urine Bilirubin Negative (NEGATIVE) Urine Urobilinogen Normalmg/dL (NORMAL) Urine Leukocyte Esterase Negative (NEGATIVE) Urine RBC 0-2/hpf (0-2) Urine WBC 0-5/hpf (0-5) Urine Epithelial Cells Few/hpf (NONE-MOD) Urine Crystals None seen (NONE SEEN) Urine Bacteria Few/hpf (NONE-FEW) Urine Hyaline Casts None/lpf (NONE) Urine Granular Casts None seen (NONE SEEN) Urine Waxy Casts None seen (NONE SEEN) Urine Red Blood Cell Casts None seen (NONE SEEN) Urine White Blood Cell Casts None seen (NONE SEEN) Urine Mucus None seen (None Seen) Urine Trichomonas None seen (NONE SEEN) Urine Yeast None (NONE SEEN) Urinalysis Comment None Urine Culture Reflexed Not indicated Hold Urine Received (Received) Troponin T 0.686ug/L (0.0-0.011) Activated Partial Thromboplast Time 52.4sec (22.8-33.0) Sodium Level 139mEq/L (134-144) Potassium Level 5.0mEq/L (3.5-5.2) Chloride Level 104mEq/L (97-108) Carbon Dioxide Level 23mmol/L (18-29) Blood Urea Nitrogen 26mg/dL (8-27) Creatinine 1.17mg/dL (0.76-1.27) Estimat Glomerular Filtration Rate 64mL/min (>59) Glucose Level 100mg/dL (60-99) Calcium Level 9.0mg/dL (8.5-10.1) Discharge Medications Discharge Medications Aspirin (Aspirin) 81 Mg Tablet 81 MG PO HS (Reported) Atorvastatin Calcium (Atorvastatin Calcium) 80 Mg Tablet 80 MG PO HS (Reported) Azelastine/Fluticasone (Dymista Nasal [place]) 23 Gm [place].pump 1 SPR NASAL DAILY (Reported) Bisoprolol Fumarate (Bisoprolol Fumarate) 5 Mg Tablet 5 MG PO DAILY (Reported) Cholecalciferol (Vitamin D3) (Vitamin D3) 2,000 Unit Tablet 2,000 UNIT PO DAILY (Reported) Clopidogrel (Clopidogrel) 75 Mg Tablet 75 MG PO DAILY (Reported) Furosemide (Furosemide) 20 Mg Tab 20 MG PO DAILY (Reported) Losartan Potassium (Losartan Potassium) 50 Mg Tablet 50 MG PO DAILY (Reported) Metformin (Glucophage) 1,000 Mg Tablet 1,000 MG PO BID (Reported) Mometasone/Formoterol (Dulera 200 Mcg/5 Mcg Inhaler) 13 Gm Hfa.aer.ad 2 PUFF INH BID (Reported) Multivitamin W-Minerals/Lutein (Centrum Silver Ultra Men's Tab) 1 Each Tablet 1 EACH PO DAILY (Reported) Sitagliptin Phos (Januvia) 100 Mg Tablet 100 MG PO DAILY (Reported) Tiotropium [place] (Spiriva) 18 Mcg Cap.w.dev 18 MCG INH DAILY (Reported) As needed Albuterol HFA (Proair HFA) 8.5 Gm Hfa.aer.ad 2 PUFFS INH q4 hours PRN PRN For Shortness of Breath (Reported) Guaifenesin (Mucinex) 1,200 Mg Tbmp.12hr 1,200 MG PO BID PRN PRN For Cough ( Reported) Nitroglycerin SL (Nitrostat) 0.4 Mg Tab.subl 0.4 MG PO Q5MIN PRN PRN For Chest Pain (Reported) Followup Plan Disposition: Condition discharged home medically stable condition Discharge Diet: No restrictions, Heart Healthy Discharge Activity: No restrictions Follow-up Provider: Ifeanyi Henry MD Follow-up with PCP in: 2 weeks Time spent 45 minutes copies to: Ifeanyi Henry MD, Benjamin P DO Mar 21, 2017 14:10
--- NOTE | 2017-03-21 14:13 | PCM.DIMED ---
Discharge Instructions Date of Service Mar 21, 2017 Dates of Hospitalization Mar 20, 2017 at 02:16 Discharge Diagnosis Discharge Diagnosis Acute cardiac strain/elevated troponin values, without evidence of acute myocardial infarction. Diet Discharge Diet: No restrictions, Heart Healthy Activity Discharge Activity: No restrictions Patient Instructions Follow-up Provider: Ifeanyi Henry MD Follow-up with PCP in: 2 weeks Joe Serrato DO Mar 21, 2017 14:13
--- NOTE | 2017-03-21 14:15 | NUR ---
Social Work-discharge: Data:EMR reviewed. Pt is on day 2 of hospitalization for chest pain per H&P. Pt is medically stable for discharge today. pt has been up independent in his room. No anticipated discharge needs. SW will continue to follow if needs arise. Assessment:pt who is independent at baseline. Plan:Pt to discharge home today via POV. No anticipated discharge needs. SW will continue to follow if needs arise. ALMAS De La Garza
--- NOTE | 2017-03-21 15:07 | PROG NOTE ---
[address] [address] PROGRESS NOTE PATIENT: DOV ZALDIVAR : 1935 MR#: [id number] ADMIT: 03/20/2017 JOB ID: [id number] DATE: 03/21/2017 SUBJECTIVE: The patient has done well overnight without any recurrent discomfort. A nuclear cardiac stress study was performed today. The patient had a mildly hypotensive blood pressure response to exercise as he has had before. He had no anginal symptoms on the stress test, but was significantly dyspneic related to his known history of COPD. He had some diffuse but nonspecific EKG changes and his nuclear cardiac stress study showed infarct in his mid anterior wall without any reversible ischemia. His left ventricle was moderately dilated with an ejection fraction in the range of 30%-35%. ICD was also interrogated and showed no dysrhythmias to account for his anginal chest discomfort and troponin elevation. DISCUSSION: The patient has no evidence of reversible ischemia and, therefore, the likelihood of a problem with either his obtuse marginal vein bypass graft or his [place] right coronary artery is remote. He is on appropriate medications and doing well clinically. He has had no cardiac dysrhythmias. I am going to recommend that he continue on his current medications and see me as scheduled this coming Sunday in the office. I will touch base with the hospitalist and notify them that in my opinion, the patient is ready to be discharged home.
--- NOTE | 2017-03-21 15:12 | NUR ---
Discharge: Patient discharged to home @ approx 1515. IV d/c'd intact, telemetry removed, wind commissioning technician notified. Personal belongings sent home with patient. Reviewed home medication list, discharge instructions and follow up appointments. Verbalized understanding. Ambulated to main entrance accompanied by RN and patient's . No apparent distress noted at time of discharge.
--- NOTE | 2017-03-21 15:29 | DRSVH ---
PROCEDURE: 1 DAY TREADMILL STRESS TEST Rest and exercise myocardial perfusion SPECT with gated imaging and ejection fraction RADIOPHARMACEUTICAL: 9.6 mCi Tc-99m tetrafosmin IV at rest and 25.5 mCi Tc-99m tetrafosmin IV at peak exercise. [id number] was performed. INDICATIONS: 81-year-old man with coronary artery disease and history of coronary artery bypass graf basurto in 2010. She presents with chest pain. Evaluate myocardial ischemia. TECHNIQUE: Radiopharmaceutical was injected at peak stress test, and also at rest. SPECT images wer e obtained. SPECT myocardial perfusion images were displayed in short axis, horizontal long axis, an d vertical long axis views. Gated images were reviewed using [employer] software. COMPARISON: [place], [place], [place] CARDIAC STRESS TEST EXERCISE, 12/14/2015, 11:15. [place], [place], MYOCARD PERF SPECT MULT, MIBI, 02/03/2013, 9:56. CARDIAC STRESS: A standard Kieran treadmill exercise tolerance test was performed by the patient under the supervision of an attending staff. The patient exercised for 4 minutes and 18 seconds; functional aerobic impai rment (RAMYA) is +10 %. Hemodynamic data: There is normal blood pressure and heart rate response to exercise stress. Patien t achieved 82% of maximum predicted heart rate at peak exercise. Symptoms: Patient had chest tightness with shortness of breath during exercise. EKG: Up to [address] depression in inferolateral leads. FINDINGS: Raw data: There is good myocardial labeling by radiotracer. No significant motion artifacts. Left ventricle function: Gated images demonstrate decreased left ventricle wall thickening in the an terior wall and apex. There is diffuse hypokinesia of the left ventricle. The anterior wall is akinet ic. There is septal rocking. No transient ischemic dilation. The left ventricle resting end-diastol ic volume is mildly increased. Left ventricle stress ejection fraction is 30%; normal values are abo ve 45%. Myocardial perfusion: There is a large, severe, fixed perfusion defect in the anterior wall extendin g to the anterolateral wall and apex, consistent with myocardial infarction. There is no reversible p erfusion defect to suggest myocardial ischemia. Comparison to prior examinations: Compared to the last examination on 12/14/2015, there is no signific ant interval change. IMPRESSION: Abnormal myocardial perfusion images. 1. There is a large myocardial infarct in the anterior wall extending to the anterior lateral wall an d apex. 2. No significant reversible perfusion defect to suggest border zone ischemia. 3. Mild left ventricular enlargement. There is moderately decreased left ventricular systolic functio n with LVEF at 30%. 4. Reduced exercise capacity. The patient had chest tightness with shortness of breath during exercis e. EKG showed ST depression in inferior and lateral leads. PQRS ATTESTATIONS: Measure 322 - Is this imaging test primarily performed on a low-risk surgery patient for preoperative evaluation within 30 days preceding their low-risk non-cardiac surgery? Low-risk surgery is defined as cardiac or myocardial infarction less than 1%, including (but not limited to) endoscopic pr ocedures, superficial procedures, cataract surgery, and excisional breast surgery: Answer: No Measure 323 - Is this imaging test performed primarily for the monitoring of an asymptomatic patient who had percutaneous coronary intervention on the visit date or within 2 years of the visit date? An swer: No Measure 324 - Is this imaging test performed primarily for the initial detection and risk assessment on an asymptomatic, low coronary heart disease patient? Low CHD risk definition = clinicians should consider the maximum number of available patient factors used to estimate risk based on [place] (A TP III criteria), typically age, gender, diabetes, smoking status, and use of blood pressure medicati on, and integrate age appropriate estimates for missing elements, such as LDL or standard blood press ure. Answer: No Dictated by: Chino Spaulding M.D. on 03/21/2017 at 15:13 Approved by: Chino Spaulding M.D. on 03/21/2017 at 15:27
== END 2017-03-21 15:09 | disposition home or self-care (01) | DRG 303 ==
LOC: SED 23:29 → MPC 03-20 02:16 → OBSVTOIN 03-20 02:16 → INTOOBSV 03-20 02:16
PROVIDERS: ADMIT Hospitalist; ATTEND Hospitalist
PROC: 4B02XTZ Measurement of Cardiac Defibrillator, External Approach (ICD-10-PCS; principal; 2017-03-21)
DX: I25.10 Atherosclerotic heart disease of native coronary artery without angina pectoris (principal); N17.9 Acute kidney failure, unspecified; I25.2 Old myocardial infarction; Z95.1 Presence of aortocoronary bypass graft; Z79.82 Long term (current) use of aspirin; Z79.84 Long term (current) use of oral hypoglycemic drugs; Z95.0 Presence of cardiac pacemaker; Z79.02 Long term (current) use of antithrombotics/antiplatelets; Z87.891 Personal history of nicotine dependence; E11.9 Type 2 diabetes mellitus without complications; E78.5 Hyperlipidemia, unspecified; J44.9 Chronic obstructive pulmonary disease, unspecified